=== PATIENT | male | born 1975 | race Caucasian/White ===

== ENCOUNTER 2021-02-05 07:08 | Day surgery (SDC) | payer BC ==
[2021-02-05] MEDS ORDERED: Ringers Lactate 1,000 ML IV ONE (08:02)
[2021-02-05] MEDS ORDERED: propofoL 200 MG/20 ML VIAL IV ONE ×2 (08:25→08:26)
[2021-02-05] MEDS ORDERED: LIDOCAINE 1% MPF 5 ML VIAL ONE (08:26)
--- NOTE | 2021-02-05 08:46 | ENDO RPT ---
[address], [address] COLONOSCOPY PROCEDURE REPORT EXAM DATE: 02/05/2021 PATIENT NAME: Alber Hester MR #: [id number] BIRTHDATE: 1975 ATTENDING: Oren Portillo Dr STATUS: outpatient CONVEYOR MAN: Rhea Kim RN and Renee Muñoz INDICATIONS: The patient is a 45 yr old Male here for a colonoscopy due to RLQ/LLQ abdominal pain PROCEDURE PERFORMED: Colonoscopy with biopsy - cold polypectomy MEDICATIONS: Per Anesthesia. ESTIMATED BLOOD LOSS: None CONSENT: The patient understands the risks and benefits of the procedure and understands that these risks include, but are not limited to: sedation, allergic reaction, infection, perforation and/or bleeding. Alternative means of evaluation and treatment include, among others: physical exam, x-rays, and/or surgical intervention. The patient elects to proceed with this endoscopic procedure. DESCRIPTION OF PROCEDURE: During intra-op preparation period all mechanical medical equipment was checked for proper function. Hand hygiene and appropriate measures for infection prevention was taken. Procedure, possible complications, alternatives including, but not limited to possibility of bleeding, perforation, tear, infection, sepsis, need for surgery, need for blood transfusion, were explained to the patient. After the risks, benefits and alternatives of the procedure were thoroughly explained, Informed consent was verified, confirmed and timeout was successfully executed by the treatment team. The patient was placed in the left lateral position. A digital rectal exam was performed and revealed no abnormalities of the rectum. After appropriate level of anesthesia, the scope was passed. The EC-[id number] ([id number]) and EC-[id number] ([id number]) endoscope was introduced through the anus and advanced to the terminal ileum which was intubated for a short distance. The quality of the prep was good. The instrument was then slowly withdrawn as the colon was fully examined. Scope withdrawal time was 8 minutes. COLON FINDINGS: A smooth sessile polyp measuring 3 mm in size was found in the descending colon. A polypectomy was performed with cold forceps. Two smooth sessile polyps ranging between 3-5mm in size were found in the rectum. A polypectomy was performed with cold forceps. Mild diverticulosis was noted in the left colon (descending / sigmoid colon). No bleeding was noted from the diverticulosis. Small internal hemorrhoids were found. Retroflexed views revealed small hemorrhoids. The scope was then completely withdrawn from the patient and the procedure terminated. ADVERSE EVENTS: There were no complications. IMPRESSIONS: 1. 3 mm sessile polyp in the descending colon; polypectomy was performed with cold forceps forceps 3. Mild diverticulosis in the left colon (descending / sigmoid colon) 4. Small internal hemorrhoids 5. Intubation to terminal ileum RECOMMENDATIONS: 1. await biopsy results 2. avoid NSAIDS for 2 weeks RECALL: Return in 3 year(s) for Colonoscopy. Oren Portillo Dr eSigned: Oren Portillo Dr 02/05/2021 8:45 AM cc: Niraj Arreguin CPT CODES: ICD9 CODES: 1. 211.3 Benign neoplasm of colon 2. 569.0 Anal and rectal polyp PATIENT NAME: Alber Hester MR#: [id number]
[2021-02-05 08:51] VITALS: O2SAT 99
[2021-02-05 08:52] VITALS: BP 146/93; TEMP 98
== END 2021-02-05 09:13 | disposition home health service (06) ==
LOC: OR 07:08
PROVIDERS: ATTEND Internal Medicine Gastroenterology
PROC: 0DBM8ZX Excision of Descending Colon, Via Natural or Artificial Opening Endoscopic, Diagnostic (ICD-10-PCS; principal; 2021-02-05 08:00)
DX: K63.5 Polyp of colon (principal); R10.32 Left lower quadrant pain; R10.31 Right lower quadrant pain; E03.9 Hypothyroidism, unspecified; K64.8 Other hemorrhoids; Z20.822 Contact with and (suspected) exposure to COVID-19
CPT/HCPCS: 88305; 45380; U0003; J2704; J7120

== ENCOUNTER 2021-08-27 10:08 | Emergency (ER) | payer BC ==
--- OUTSIDE RECORDS SUMMARY | 2021-08-27 10:11 | XMS REPORT | Continuity of Care Document ---
:1975 Author Organization [facility] t Address [address] [place] [address] Care Team Providers Name Role Phone Bandar, H Attending Clinician Unavailable Payers Payer Name Policy Type Policy Number Effective Date Expiration Date S ource Problems This patient has no known problems. Allergies, Adverse Reactions, Alerts This patient has no known allergies or adverse reactions. Medications This patient has no known medications. Procedures This patient has no known procedures. Encounters Start End Encounter Admission Attending Care Care Encounter Source Date/Time Date/Time Type Type Clinicians Facility Department ID 2021-01-16 Inpatient Bandar, HCAPM ENDO [id number] [facility] 09:15:00 Oren [id number] [facility] Results This patient has no known results.
[2021-08-27 12:03] LABS: Urine Blood 2+ (Negative); Urine Glucose Negative (Negative); Urine Protein 1+ (Negative); Urine Specific Gravity 1.025 (1.005-1.030); Urine pH 5.5 (5.0-7.0)
[2021-08-27 12:11] LABS: Absolute Lymphocytes (CBC) 1.3 K/uL (0.7-4.9); Basophils % 0.5 % (0-1.3); Hematocrit 44.1 % (39.6-49.0); Lymphocytes % 8.4 % (15.3-44.8); RBC Red Blood Cell Count 5.02 M/uL (4.33-5.43)
[2021-08-27] MEDS ORDERED: NA CHLORIDE 0.9% 1,000 ML ONE (12:15)
[2021-08-27 12:28] LABS: Albumin 2.8 g/dL (3.4-5.0); Bilirubin Direct 0.2 mg/dL (0-0.2); Bilirubin Total 0.7 mg/dL (0.2-1.0); Potassium 3.7 mmol/L (3.5-5.1); Protein, Total 7.4 g/dL (6.4-8.2)
[2021-08-27 12:28] LABS: Urine Bacteria <20 /HPF (NONE SEEN); Urine Mucus 2+ /HPF (NONE SEEN)
[2021-08-27] MEDS ORDERED: Levofloxacin500mg IV 500 MG/100 ML BAG IV ONE (13:36)
--- NOTE | 2021-08-27 14:10 | EDPHYS ---
Physician Documentation [facility] Name: Alber Hester Age: 46 yrs Sex: Male : 1975 Arrival Date: 08/27/2021 Time: 11:05 Bed 15 Private MD: ED Physician Cipriano Oconnell HPI: 08/27 12:07 This 46 yrs old Male presents to ER via Ambulatory with complaints of Fever, Urinary sp3 Frequency, Pain With Urination. 12:07 46-year-old male with a history of hypertension and hypothyroidism and obesity presents sp3 with urinary frequency, burning and generalized suprapubic pain for 2 days. Patient states that he had 102.0 T-max yesterday. 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 He has not had these symptoms in the past. He denies any back pain but does state that he had body aches.. Historical: - Allergies: 11:25 No Known Allergies; [facility] - Home Meds: 11:25 levothyroxine 150 mcg tab [Active]; [facility] - PMHx: 11:25 Hyperthyroidism; [facility] - Immunization history:: Adult Immunizations up to date. - Social history:: Smoking status: Patient denies any tobacco usage or history of. ROS: 12:08 Eyes: Negative for injury, pain, redness, and discharge, Neck: Negative for injury, sp3 pain, and swelling, Cardiovascular: Negative for chest pain, palpitations, and edema, Respiratory: Negative for shortness of breath, cough, wheezing, and pleuritic chest pain, Back: Negative for injury and pain, MS/Extremity: Negative for injury and deformity, Skin: Negative for injury, rash, and discoloration, Neuro: Negative for headache, weakness, numbness, tingling, and seizure, Psych: Negative for depression, anxiety, suicide ideation, homicidal ideation, and hallucinations, Allergy/Immunology: Negative for hives, rash, and allergies, Hematologic/Lymphatic: Negative for swollen nodes, abnormal bleeding, and unusual bruising. 12:08 Constitutional: Positive for body aches, fatigue, fever. Exam: 12:10 Constitutional: This is a well developed, well nourished patient who is awake, alert, sp3 and in no acute distress. Head/Face: Normocephalic, atraumatic. Eyes: Pupils equal round and reactive to light, extra-ocular motions intact. Lids and lashes normal. Conjunctiva and sclera are non-icteric and not injected. Cornea within normal limits. Periorbital areas with no swelling, redness, or edema. Neck: Trachea midline, no thyromegaly or masses palpated, and no cervical lymphadenopathy. Supple, full range of motion without nuchal rigidity, or vertebral point tenderness. No Meningismus. Chest/axilla: Normal chest wall appearance and motion. Nontender with no deformity. No lesions are appreciated. Cardiovascular: Regular rate and rhythm with a normal S1 and S2. No gallops, murmurs, or rubs. Normal PMI, no JVD. No pulse deficits. Respiratory: Lungs have equal breath sounds bilaterally, clear to auscultation and percussion. No rales, rhonchi or wheezes noted. No increased work of breathing, no retractions or nasal flaring. Abdomen/GI: Soft, non-tender, with normal bowel sounds. No distension or tympany. No guarding or rebound. No evidence of tenderness throughout. Back: No spinal tenderness. No costovertebral tenderness. Full range of motion. Skin: Warm, dry with normal turgor. Normal color with no rashes, no lesions, and no evidence of cellulitis. MS/ Extremity: Pulses equal, no cyanosis. Neurovascular intact. Full, normal range of motion. Neuro: Awake and alert, GCS 15, oriented to person, place, time, and situation. Cranial nerves II-XII grossly intact. Motor strength 5/5 in all extremities. Sensory grossly intact. Cerebellar exam normal. Normal gait. Psych: Awake, alert, with orientation to person, place and time. Behavior, mood, and affect are within normal limits. Vital Signs: 11:23 BP 150 / 97; Pulse 123; Resp 18; Temp 97.9; Pulse Ox 100% ; Weight 190.51 kg; Height 5 jh5 ft. 9 in. (175.26 cm); 12:51 BP 147 / 85; Pulse 123; Resp 18 S; Pulse Ox 100% on R/A; jd3 13:50 BP 139 / 84; Pulse 115; Resp 18 S; Pulse Ox 100% on R/A; jd3 14:25 BP 145 / 92; Pulse 118; Resp 17 S; Pulse Ox 100% on R/A; jd3 11:23 Body Mass Index 62.02 (190.51 kg, 175.26 cm) [facility] MDM: 11:29 Patient medically screened. sp3 12:09 Data reviewed: vital signs, nurses notes. ED course: We will give patient 1 L normal sp3 saline and perform work-up including UA, lactate, blood cultures. Likely urinary source but Covid also possibility. Disposition based on work-up. I am not highly suspicious for kidney stone at this time. Patient has no CVA tenderness did not have back or upper abdominal pain.. 14:08 ED course: Discharged home with a diagnosis of pyelonephritis and Levaquin p.o. Patient sp3 also received 1 dose in the ED IV.. 08/27 11:24 Order name: Urine Microscopic Only; Complete Time: 13:32 kb 08/27 11:34 Order name: Basic Metabolic Panel; Complete Time: 13:32 sp3 08/27 11:34 Order name: CBC with Diff; Complete Time: 13:32 sp3 08/27 11:34 Order name: Hepatic Function; Complete Time: 13:32 sp3 08/27 11:34 Order name: Lipase; Complete Time: 13:32 sp3 08/27 11:35 Order name: Blood Culture Adult (2) sp3 08/27 11:24 Order name: Urine Dipstick-Ancillary (obtain specimen); Complete Time: 12:06 kb 08/27 11:35 Order name: Lactate; Complete Time: 13:32 sp3 08/27 11:37 Order name: COVID-19 SARS RT PCR (Document "Date of Onset" if Symptomatic); Complete sp3 Time: 13:32 08/27 12:04 Order name: Urine Dipstick-Ancillary; Complete Time: 13:32 EDMS 08/27 12:30 Order name: Urine Culture EDMS 08/27 11:34 Order name: IV Saline Lock; Complete Time: 12:06 sp3 08/27 11:34 Order name: Labs collected and sent; Complete Time: 12:06 sp3 Administered Medications: 12:27 Drug: NS 0.9% 1000 ml Route: IV; Rate: 1 bolus; Site: right forearm; jd3 13:25 Follow up: Response: No adverse reaction; IV Status: Completed infusion; IV Intake: jd3 1000ml 13:40 Drug: LevaQUIN (levofloxacin) 500 mg Volume: 100 ml; Route: IVPB; Infused Over: 60 jd3 mins; Site: right forearm; 14:40 Follow up: Response: No adverse reaction; IV Status: Completed infusion jd3 Disposition Summary: 08/27/21 14:09 Discharge Ordered Location: Home sp3 Condition: Stable sp3 Diagnosis - Pyelonephritis acute sp3 Followup: sp3 - With: Private Physician - When: - Reason: Recheck today's complaints Discharge Instructions: - Discharge Summary Sheet sp3 - Pyelonephritis, Adult sp3 Forms: - Medication Reconciliation Form sp3 - Thank You Letter sp3 - Antibiotic Education sp3 - Prescription Opioid Use sp3 Prescriptions: - levofloxacin 500 mg Oral Tablet - take 1 tablet by ORAL route once daily for 7 days; 10 tablet; Refills: 0, sp3 Product Selection Permitted Signatures: Dispatcher [employer] EDIngrid Randall, NIKKI STALEY-Jacinto Wallace RN RN jd3 Cipriano Oconnell MD MD sp3 Laura Alvarez RN RN jh5 Corrections: (The following items were deleted from the chart) 11:34 11:24 Urine Test ordered. sp3
--- NOTE | 2021-08-27 14:10 | ER ---
Nurse's Notes [facility] Name: Alber Hester Age: 46 yrs Sex: Male : 1975 Arrival Date: 08/27/2021 Time: 11:05 Bed 15 Private MD: Diagnosis: Pyelonephritis acute Presentation: 08/27 11:23 Chief complaint: Patient states: yesterday having urinary frequency and burning, fever jh5 of 102 yesterday, body aches. Coronavirus screen: Vaccine status:. Ebola Screen: Patient negative for fever greater than or equal to 101.5 degrees Fahrenheit, and additional compatible Ebola Virus Disease symptoms Patient denies exposure to infectious person. Patient denies travel to an Ebola-affected area in the 21 days before illness onset. No symptoms or risks identified at this time. Initial Sepsis Screen: Does the patient meet any 2 criteria? HR > 90 bpm. Does the patient have a suspected source of infection? Yes: Dysuria/Frequency/Urgency/UTI. Risk Assessment: Do you want to hurt yourself or someone else? Patient reports no desire to harm self or others. Onset of symptoms was August 26, 2021. 11:23 Method Of Arrival: Ambulatory [facility] 11:23 Acuity: PHU 3 5 Triage Assessment: 11:27 General: Appears in no apparent distress. Behavior is calm, cooperative, appropriate [facility] for age. Pain: Denies pain. Historical: - Allergies: 11:25 No Known Allergies; [facility] - Home Meds: 11:25 levothyroxine 150 mcg tab [Active]; [facility] - PMHx: 11:25 Hyperthyroidism; [facility] - Immunization history:: Adult Immunizations up to date. - Social history:: Smoking status: Patient denies any tobacco usage or history of. Screenin:08 Abuse screen: Denies threats or abuse. Nutritional screening: No deficits noted. jd3 Tuberculosis screening: No symptoms or risk factors identified. Fall Risk Ambulatory Aid- None/Bed Rest/Nurse Assist (0 pts). Gait- Normal/Bed Rest/Wheelchair (0 pts) Mental Status- Oriented to own ability (0 pts). Total Laura Fall Scale indicates No Risk (0-24 pts). Assessment: 12:07 General: Appears comfortable, Behavior is calm, cooperative, appropriate for age. Pain: jd3 Complains of pain in groin Quality of pain is described as stinging. Neuro: Level of Consciousness is awake, alert, obeys commands, Oriented to person, place, time, situation. Cardiovascular: Denies chest pain, Capillary refill < 3 seconds Patient's skin is warm and dry. Respiratory: Airway is patent Respiratory effort is even, unlabored, Respiratory pattern is regular, symmetrical, Denies cough, shortness of breath. GI: No signs and/or symptoms were reported involving the gastrointestinal system. : Urine is cloudy, Reports burning with urination, incontinence, urgency, urinary frequency. EENT: No signs and/or symptoms were reported regarding the EENT system. Derm: Skin is intact, Skin is dry, Skin is normal, Skin temperature is warm. Musculoskeletal: Circulation, motion, and sensation intact. Range of motion: intact in all extremities. 12:51 Reassessment: No changes from previously documented assessment. Patient and/or family jd3 updated on plan of care and expected duration. Pain level reassessed. Patient is alert, oriented x 3, equal unlabored respirations, skin warm/dry/pink. 13:49 Reassessment: Patient appears in no apparent distress at this time. No changes from jd3 previously documented assessment. Patient and/or family updated on plan of care and expected duration. Pain level reassessed. Patient is alert, oriented x 3, equal unlabored respirations, skin warm/dry/pink. 14:21 Reassessment: Patient appears in no apparent distress at this time. Patient and/or jd3 family updated on plan of care and expected duration. Pain level reassessed. Patient is alert, oriented x 3, equal unlabored respirations, skin warm/dry/pink. discharge pending IV medication infusion completion. Vital Signs: 11:23 BP 150 / 97; Pulse 123; Resp 18; Temp 97.9; Pulse Ox 100% ; Weight 190.51 kg; Height 5 jh5 ft. 9 in. (175.26 cm); 12:51 BP 147 / 85; Pulse 123; Resp 18 S; Pulse Ox 100% on R/A; jd3 13:50 BP 139 / 84; Pulse 115; Resp 18 S; Pulse Ox 100% on R/A; jd3 14:25 BP 145 / 92; Pulse 118; Resp 17 S; Pulse Ox 100% on R/A; jd3 11:23 Body Mass Index 62.02 (190.51 kg, 175.26 cm) [facility] ED Course: 11:05 Patient arrived in ED. kc5 11:25 Triage completed. 5 11:29 Cipriano Oconnell MD is Attending Physician. sp3 11:33 Jacinto Monk RN is Primary Nurse. jd3 12:07 Arm band placed on. jd3 12:07 Inserted saline lock: 20 gauge in right forearm, using aseptic technique. Blood jd3 collected. 12:09 Patient has correct armband on for positive identification. Bed in low position. Call jd3 light in reach. Side rails up X 1. Adult w/ patient. Pulse ox on. NIBP on. 14:45 No provider procedures requiring assistance completed. IV discontinued, intact, jd3 bleeding controlled, No redness/swelling at site. Pressure dressing applied. Administered Medications: 12:27 Drug: NS 0.9% 1000 ml Route: IV; Rate: 1 bolus; Site: right forearm; jd3 13:25 Follow up: Response: No adverse reaction; IV Status: Completed infusion; IV Intake: jd3 1000ml 13:40 Drug: LevaQUIN (levofloxacin) 500 mg Volume: 100 ml; Route: IVPB; Infused Over: 60 jd3 mins; Site: right forearm; 14:40 Follow up: Response: No adverse reaction; IV Status: Completed infusion jd3 Intake: 13:25 IV: 1000ml; Total: 1000ml. jd3 Outcome: 14:09 Discharge ordered by . sp3 14:45 Discharged to home ambulatory. jd3 14:45 Condition: stable 14:45 Discharge instructions given to patient, Instructed on discharge instructions, follow up and referral plans. medication usage, Demonstrated understanding of instructions, follow-up care, medications, Prescriptions given X 1. 14:46 Patient left the ED. jd3 Addendum: 08/30/2021 07:16 Addendum: Culture Results: Positive urine culture. No further action required. Bacteria e b sensitive to prescribed antibiotic. Signatures: Jacinto Monk, RN RN jd3 Sandrita Barrow Setul, MD MD sp3 Laura Alvarez RN RN 5 Dixie Crawley [facility]
[2021-08-27 14:55] VITALS: TEMP 97.9; O2SAT 100
[2021-08-27 14:58] VITALS: BP 145/92
== END 2021-08-27 14:46 | disposition home or self-care (01) ==
LOC: ER 10:08
DX: N10 Acute pyelonephritis (principal); Z20.822 Contact with and (suspected) exposure to COVID-19
CPT/HCPCS: 96365; 96361; 87040 ×2; 87088; 85025; 87086; 80048; 36415; 80076; 83605; 87077; 87186; 83690; 99284; U0003; J7030; 81003; 81015

== ENCOUNTER 2025-02-06 14:42 | Emergency (ER) | payer BC ==
--- OUTSIDE RECORDS SUMMARY | 2025-02-06 14:45 | XMS REPORT | Continuity of Care Document ---
Author Name Unknown Address [address] [place] [address] [address] [place] [address] [facility] Address [address] [facility] [address] [place] [address] Care Team Providers Care Yeast Tender Name Role Phone Oren Portillo Attending Clinician Unavailabl e Payers Payer Name Policy Type Policy Number Effective Date Expirati on Date Source Encounters Start Date/Time End Date/Time Encounter Type Admission Type Attending Clinicians Care Facility Care Department Encounter ID Source 2021-01-28 09:11:45 Inpatient Oren Portillo [facility] [id number] [address] [facility]
--- NOTE | 2025-02-06 18:16 | RAD REPORT ---
EXAM: XR Knee Left 3 View HISTORY: [facility] MAIN PAIN Bed Name: IW3 COMPARISON: None TECHNIQUE: 3 views of the left knee were obtained. FINDINGS: No knee effusion is seen. There is no evidence of acute fracture or dislocation. Mild isabel inal spurring at the patella. No soft tissue swelling or other soft tissue abnormality is present. IMPRESSION: No evidence of acute osseous abnormality. Mild degenerative marginal spurring at the pat viola.
--- NOTE | 2025-02-06 18:20 | EDPHYS ---
Physician Documentation [facility] Name: Alber Hester Age: 49 yrs Sex: Male : 1975 Arrival Date: 02/06/2025 Time: 14:42 Bed 12 Private MD: ED Physician Cipriano Oconnell HPI: 02/06 17:10 This 49 yrs old Male presents to ER via Wheelchair with complaints of Leg Injury. kb 17:10 Patient is a 49-year-old male who presents for left knee pain that started earlier kb today. States he was walking and felt a pop in the left knee. Went to the school nurse and she said she heard a pop whenever she tried to range his knee. She recommended they come to the ER for evaluation.. Historical: - Allergies: 14:59 No Known Allergies; db - PMHx: 14:59 hyperthyroidism; db - Immunization history:: Adult Immunizations unknown. - Infectious Disease History:: Denies. - Social history:: Smoking status: Patient denies any tobacco usage or history of. ROS: 17:09 Constitutional: As per HPI kb Exam: 17:09 Constitutional: This is a well developed, well nourished patient who is awake, alert, kb and in no acute distress. Head/Face: Normocephalic, atraumatic. ENT: Moist Mucous membranes Respiratory: Respirations even and unlabored. No increased work of breathing. Talking in full sentences Skin: Warm, dry with normal turgor. Normal color. Neuro: Awake and alert, GCS 15, oriented to person, place, time, and situation. 17:09 Musculoskeletal/extremity: Extremities: grossly normal except: noted in the lateral aspect of left knee: decreased ROM, pain, tenderness, ROM: limited active range of motion, in the left knee, Circulation is intact in all extremities. Sensation intact. Vital Signs: 14:58 BP 140 / 78; Pulse 82; Resp 16; Temp 97.2(TE); Pulse Ox 95% ; db MDM: 14:55 Medical Screening Exam initiated kb 17:09 Data reviewed: vital signs, nurses notes. Independent interpretation of the following kb test(s) in the Emergency Department X-Ray: My interpretation is no fracture. 17:10 Differential diagnosis: dislocation, closed fracture, sprain. kb 18:18 I considered the following discharge prescriptions or medication management in the emergency department I discussed and recommended Over The Counter medications. Counseling: I had a detailed discussion with the patient and/or guardian regarding the historical points, exam findings, and any diagnostic results supporting the discharge/admit diagnosis, radiology results, the need for outpatient follow up, a family practitioner, to return to the emergency department if symptoms worsen or persist or if there are any questions or concerns that arise at home. ED course: Will prescribe diclofenac for pain management. 02/06 15:00 Order name: Knee Left 3 View XRAY; Complete Time: 18:18 kb 02/06 18:18 Order name: Arsenio Wrap; Complete Time: 18:35 kb 02/06 18:18 Order name: Crutches; Complete Time: 18:20 kb Administered Medications: No medications were administered Disposition Summary: 02/06/25 18:19 Discharge Ordered Notes: Location: Home kb Condition: Stable kb Diagnosis - Pain in left knee kb Followup: kb - With: Emergency Department - When: As needed - Reason: Worsening of condition Followup: kb - With: Private Physician - When: 2 - 3 days - Reason: Recheck today's complaints, Continuance of care, Re-evaluation by your physician Discharge Instructions: - Discharge Summary Sheet kb - Knee Sprain, Adult, [id number] kb - Acute Knee Pain, Adult, [id number] Forms: - Medication Reconciliation Form kb - Antibiotic Education kb - Prescription Opioid Use kb - Patient Portal Instructions - Leadership Thank You Letter Prescriptions: - Diclofenac Sodium 75 mg Oral tablet, delayed release (enteric coated) - take 1 tablet ORAL route 2 times per day As needed; 30 tablet; Refills: 0, Product Selection Permitted Signatures: Dispatcher [employer] Ingrid Dempsey, TRACK BROOM OPERATOR-C TRACK BROOM OPERATOR-Gavi Vicente, RN RN db
--- NOTE | 2025-02-06 18:20 | ER ---
Nurse's Notes [facility] Name: Alber Hester Age: 49 yrs Sex: Male : 1975 Arrival Date: 02/06/2025 Time: 14:42 Bed 12 Private MD: Diagnosis: Pain in left knee Presentation: 02/06 14:58 Chief complaint: Patient states: LEFT KNEE PAIN AFTER FEELING A "POP" WHILE WALKING. db STATES DIFFICULTY WALKING AND STANDING ON IT WITH TENDERNESS. 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 Coronavirus screen: Client denies travel out of the [place] in the last 14 days. At this time, the client does not indicate any symptoms associated with coronavirus-19. Ebola Screen: Patient negative for fever greater than or equal to 101.5 degrees Fahrenheit, and additional compatible Ebola Virus Disease symptoms Patient denies exposure to infectious person. Patient denies travel to an Ebola-affected area in the 21 days before illness onset. No symptoms or risks identified at this time. Initial Sepsis Screen: Does the patient meet any 2 criteria? No. Patient's initial sepsis screen is negative. Does the patient have a suspected source of infection? No. Patient's initial sepsis screen is negative. Risk Assessment: Do you want to hurt yourself or someone else? Patient reports no desire to harm self or others. Onset of symptoms was February 06, 2025. 14:58 Method Of Arrival: Wheelchair db 14:58 Acuity: PHU 4 db Triage Assessment: 14:59 General: Appears in no apparent distress. comfortable, Behavior is calm, cooperative. db Pain: Complains of pain in lateral aspect of left knee, posterior aspect of left knee, medial aspect of left knee and left knee. Neuro: Level of Consciousness is awake, alert, obeys commands, Oriented to person, place, time, situation. Musculoskeletal: Circulation, motion, and sensation intact. Range of motion: limited in left knee. Historical: - Allergies: 14:59 No Known Allergies; db - PMHx: 14:59 hyperthyroidism; db - Immunization history:: Adult Immunizations unknown. - Infectious Disease History:: Denies. - Social history:: Smoking status: Patient denies any tobacco usage or history of. Screenin:12 Abuse screen: Denies threats or abuse. Denies injuries from another. Nutritional ss screening: No deficits noted. Tuberculosis screening: Never had TB. Assessment: 17:12 Reassessment: awaiting XRAY results. ss 18:02 Reassessment: Called imaging to see how much a longer it would be for XRAY results. ss 18:36 General: Appears in no apparent distress. comfortable, Behavior is calm, cooperative. ss Pain: Complains of pain in medial aspect of left knee and posterior aspect of left knee and lateral aspect of left knee. Neuro: Level of Consciousness is awake, alert, obeys commands, Oriented to person, place, time, situation. Respiratory: Respiratory effort is even, unlabored. Musculoskeletal: Swelling absent. Vital Signs: 14:58 BP 140 / 78; Pulse 82; Resp 16; Temp 97.2(TE); Pulse Ox 95% ; db ED Course: 14:46 Patient arrived in ED. gl 14:55 Ingrid Yu FNP-C is PHCP. kb 14:55 Cipriano Oconnell MD is Attending Physician. kb 14:59 Triage completed. db 15:00 Arm band placed on right wrist. Patient placed. db 15:34 Knee Left 3 View XRAY In Process Unspecified. EDMS 17:12 Alysha Talavera, RN is Primary Nurse. ss 17:12 Patient has correct armband on for positive identification. Bed in low position. ss 18:36 No provider procedures requiring assistance completed. Patient did not have IV access ss during this emergency room visit. Administered Medications: No medications were administered Medication: 18:36 VIS not applicable for this client. ss Outcome: 18:19 Discharge ordered by MD. kb 18:36 Discharged to home ambulatory, ss 18:36 Condition: good 18:36 Discharge instructions given to patient, family, Instructed on discharge instructions, follow up and referral plans. crutch walking, Demonstrated understanding of instructions, follow-up care, crutch walking, Prescriptions given X 1, 18:37 Patient left the ED. ss Signatures: Dispatcher [employer] EDMS Ingrid Yu FNP-C FNP-Alysha Laurent, JODIE FELICIANO ss Gavi Bolton RN RN db Celeste Chiu, Reg Reg gl Corrections: (The following items were deleted from the chart) 14:59 14:58 Chief complaint: Patient states: LEFT KNEE PAIN AFTER FEELING A "POP" WHILE db WALKING. STATES DIFFICULTY WALKING AND STANDING ON IT WITH TENDERNESS db
[2025-02-06 19:11] VITALS: BP 140/78; TEMP 97.2; O2SAT 95
== END 2025-02-06 18:37 | disposition home or self-care (01) ==
LOC: ER 14:42
DX: M25.562 Pain in left knee (principal)
CPT/HCPCS: 99283